=== PATIENT | female | born 1950 | race Caucasian/White ===

== ENCOUNTER 2017-07-21 22:47 | Inpatient (IN) | payer MEDICARE, OTHER ==
[2017-07-22 00:14] LABS: ADD MAN DIFF? NO
[2017-07-22] MEDS: CEFEPIME 2GM/50 ML (PMX) 50 ML IVPB (00:21)
[2017-07-22] MEDS: ONDANSETRON 4 MG INJ IV (00:21)
[2017-07-22 00:22] LABS: BASOPHILS % 0.2 % (0.0-2.0); HEMATOCRIT 38.9 % (37.0-47.0); HEMOGLOBIN 12.7 g/dl (12.0-16.0); LYMPHOCYTES # 1.7 10^3/ul (0.8-2.9); LYMPHOCYTES % 8.6 % (15.0-51.0); MEAN CORPUSCULAR HEMOGLOBIN 26.4 pg (29.0-33.0); MEAN CORPUSCULAR HGB CONC 32.6 g/dl (32.0-37.0); MEAN CORPUSCULAR VOLUME 80.9 fl (82.0-101.0); MEAN PLATELET VOLUME 9.6 fl (7.4-10.4); MONOCYTE # 0.8 10^3/ul (0.3-0.9); MONOCYTES % 4.3 % (0.0-11.0); NEUTROPHIL # 16.6 10^3/ul (1.6-7.5); NEUTROPHILS % 86.4 % (39.0-77.0); PLATELET COUNT 642 10^3/UL (140-415); RED BLOOD COUNT 4.81 10^6/ul (4.20-5.40); RED CELL DISTRIBUTION WIDTH 14.9 % (11.5-14.5)
[2017-07-22 00:22] LABS: WHITE BLOOD COUNT 19.2 10^3/ul (4.8-10.8)
[2017-07-22] MEDS: SODIUM CHLORIDE 0.9% 1L BAG IV* (00:22)
[2017-07-22 00:36] LABS: ALANINE AMINOTRANSFERASE 20 IU/L (13-69); ALBUMIN 4.4 g/dl (3.3-4.9); ALBUMIN/GLOBULIN RATIO 1.33; ALKALINE PHOSPHATASE 105 IU/L (42-121); ANION GAP 21 (8-16); ASPARTATE AMINO TRANSFERASE 26 IU/L (15-46); BILIRUBIN,INDIRECT 0.4 mg/dl (0-1.1); BILIRUBIN,TOTAL 0.4 mg/dl (0.2-1.3); BLOOD UREA NITROGEN 22 mg/dl (7-20); CALCIUM 9.8 mg/dl (8.4-10.2); CARBON DIOXIDE 23 mmol/L (21-31); CHLORIDE 98 mmol/L (97-110); GLUCOSE 140 mg/dl (70-220); POTASSIUM 3.7 mmol/L (3.5-5.1); SODIUM 138 mmol/L (135-144); TOTAL PROTEIN 7.7 g/dl (6.1-8.1)
[2017-07-22 00:37] LABS: PROTIME 12.2 Sec (11.9-14.9)
[2017-07-22 00:41] LABS: LACTIC ACID 3.5 mmol/L (0.5-2.0)
[2017-07-22 00:47] LABS: TROPONIN-I 0.039 ng/ml (0.000-0.120)
[2017-07-22 01:08] LABS: ADD UMIC YES; UR ASCORBIC ACID NEGATIVE (NEGATIVE); UR BILIRUBIN (Dip) NEGATIVE (NEGATIVE); UR BLOOD (Dip) 1+ mg/dL (NEGATIVE); UR CLARITY SLIGHTLY CLOUDY (CLEAR); UR COLOR YELLOW (YELLOW); UR GLUCOSE (Dip) NEGATIVE (NEGATIVE); UR KETONES (Dip) NEGATIVE (NEGATIVE); UR LEUKOCYTE ESTERASE (Dip) TRACE Leu/ul (NEGATIVE); UR MUCUS FEW /HPF (NONE SEEN); UR NITRITE (Dip) NEGATIVE (NEGATIVE); UR RBC 1 /HPF (0-5); UR SQUAMOUS EPITHELIAL CELL FEW /HPF (FEW); UR TOTAL PROTEIN (Dip) 1+ mg/dl (NEGATIVE); UR UROBILINOGEN (Dip) NEGATIVE (NEGATIVE); UR WBC 4 /HPF (0-5)
[2017-07-22 03:44] LABS: LACTIC ACID 1.3 mmol/L (0.5-2.0)
[2017-07-22] MEDS: morphine 4 MG/ML VIAL IV (04:50)
[2017-07-22] MEDS: ACETAMINOPHEN 325 MG TAB PO (05:00)
[2017-07-22] MEDS ORDERED: DIAZEPAM 5 MG/ML SYG IV (05:00)
[2017-07-22] MEDS: DIAZEPAM 5 MG TAB PO (05:00)
[2017-07-22 06:22] LABS: LACTIC ACID 1.4 mmol/L (0.5-2.0)
[2017-07-22] MEDS ORDERED: ONDANSETRON 4 MG INJ IV (06:30)
[2017-07-22] MEDS ORDERED: NACL 0.9% 3 ML SYG IV (06:30)
[2017-07-22] MEDS ORDERED: DOCUSATE SODIUM 100 MG CAP PO (06:30)
[2017-07-22] MEDS ORDERED: ACETAMINOPHEN 325 MG TAB PO (06:30)
[2017-07-22] MEDS ORDERED: ALPRAZOLAM 0.25 MG TAB PO (09:00)
[2017-07-22] MEDS ORDERED: CEFEPIME 1GM/50 ML (PMX) 50 ML IVPB (09:00)
[2017-07-22] MEDS ORDERED: hydrALAzine 20 MG INJ IV (09:30)
[2017-07-22] MEDS: ASPIRIN (EC) 81 MG TAB PO (10:20)
[2017-07-22] MEDS: PANTOPRAZOLE (EC) 40 MG TAB PO (10:20)
[2017-07-22] MEDS: LISINOPRIL 20 MG TAB PO ×2 (10:20→21:06)
[2017-07-22] MEDS: DULOXETINE 30 MG CAP DR PO (10:20)
[2017-07-22] MEDS: HYDROCODONE/APAP (7.5/325) TAB PO ×2 (10:21→18:10)
[2017-07-22] MEDS: VERAPAMIL (SR) 120 MG TAB PO (11:32)
[2017-07-23] MEDS: HYDROCODONE/APAP (7.5/325) TAB PO (02:02)
[2017-07-23 05:49] LABS: ADD MAN DIFF? NO
[2017-07-23 05:54] LABS: BASOPHIL # 0.1 10^3/ul (0.0-0.1); BASOPHILS % 0.6 % (0.0-2.0); EOSINOPHILS # 0.1 10^3/ul (0.0-0.5); EOSINOPHILS % 1.4 % (0.0-7.0); HEMATOCRIT 28.2 % (37.0-47.0); HEMOGLOBIN 9.2 g/dl (12.0-16.0); LYMPHOCYTES # 2.5 10^3/ul (0.8-2.9); LYMPHOCYTES % 32.8 % (15.0-51.0); MEAN CORPUSCULAR HEMOGLOBIN 26.8 pg (29.0-33.0); MEAN CORPUSCULAR HGB CONC 32.6 g/dl (32.0-37.0); MEAN CORPUSCULAR VOLUME 82.2 fl (82.0-101.0); MEAN PLATELET VOLUME 9.6 fl (7.4-10.4); MONOCYTE # 0.7 10^3/ul (0.3-0.9); MONOCYTES % 9.3 % (0.0-11.0); NEUTROPHIL # 4.3 10^3/ul (1.6-7.5); NEUTROPHILS % 55.6 % (39.0-77.0); PLATELET COUNT 357 10^3/UL (140-415); RED BLOOD COUNT 3.43 10^6/ul (4.20-5.40); RED CELL DISTRIBUTION WIDTH 14.9 % (11.5-14.5)
[2017-07-23 05:54] LABS: WHITE BLOOD COUNT 7.8 10^3/ul (4.8-10.8)
[2017-07-23 06:38] LABS: HEMOGLOBIN A1C 5.4 % (0-5.9)
[2017-07-23 06:44] LABS: ALANINE AMINOTRANSFERASE 23 IU/L (13-69); ALBUMIN 3.7 g/dl (3.3-4.9); ALBUMIN/GLOBULIN RATIO 1.27; ALKALINE PHOSPHATASE 79 IU/L (42-121); ANION GAP 13 (8-16); ASPARTATE AMINO TRANSFERASE 30 IU/L (15-46); BILIRUBIN,INDIRECT 0.3 mg/dl (0-1.1); BILIRUBIN,TOTAL 0.3 mg/dl (0.2-1.3); BLOOD UREA NITROGEN 12 mg/dl (7-20); CALCIUM 8.6 mg/dl (8.4-10.2); CARBON DIOXIDE 26 mmol/L (21-31); CHLORIDE 103 mmol/L (97-110); CREATININE 0.64 mg/dl (0.44-1.00); GLUCOSE 96 mg/dl (70-220); POTASSIUM 3.8 mmol/L (3.5-5.1); SODIUM 138 mmol/L (135-144); TOTAL PROTEIN 6.6 g/dl (6.1-8.1)
[2017-07-23] MEDS: ASPIRIN (EC) 81 MG TAB PO (08:32)
[2017-07-23] MEDS: PANTOPRAZOLE (EC) 40 MG TAB PO (08:33)
[2017-07-23] MEDS: VERAPAMIL (SR) 120 MG TAB PO (08:33)
[2017-07-23] MEDS: LISINOPRIL 20 MG TAB PO (08:33)
[2017-07-23] MEDS: BISACODYL (EC) 5 MG TAB PO (08:34)
[2017-07-23] MEDS: DULOXETINE 30 MG CAP DR PO (09:40)
[2017-07-23] MEDS: ACET/BUTAL/CAFF TAB PO (09:41)
== END 2017-07-23 17:10 | disposition home or self-care (01) | DRG 103 ==
LOC: MS2 07-22 09:37 → E/R 22:47 → MS2 07-22 05:25
DX: G43.909 Migraine, unspecified, not intractable, without status migrainosus (principal); Z86.73 Personal history of transient ischemic attack (TIA), and cerebral infarction without residual deficits; M79.7 Fibromyalgia; R11.2 Nausea with vomiting, unspecified; D72.829 Elevated white blood cell count, unspecified; F41.8 Other specified anxiety disorders; K21.9 Gastro-esophageal reflux disease without esophagitis; I10 Essential (primary) hypertension
CPT/HCPCS: 36415; 70450; 71045; 80053; 81001; 83036; 83605; 84484; 85025; 85610; 85730; 87040; 87086; 93005; 96365; 96366; 96375; 99291-25